=== PATIENT | male | born 1970 | race Caucasian/White ===

== ENCOUNTER → 2016-09-24 | Outpatient (CLI) | payer OTHER | END | disposition home or self-care (01) | LOC: GMAM 10:17 | PROVIDERS: ATTEND Family Medicine | DX: R53.83 Other fatigue (principal); E29.1 Testicular hypofunction; M10.9 Gout, unspecified; I10 Essential (primary) hypertension ==

== ENCOUNTER → 2016-09-24 | Outpatient (CLI) | payer OTHER | END | disposition home or self-care (01) | LOC: GMAM 12:27 | PROVIDERS: ATTEND Family Medicine | DX: I10 Essential (primary) hypertension (principal); M10.9 Gout, unspecified; R53.83 Other fatigue; E29.1 Testicular hypofunction ==

== ENCOUNTER → 2017-11-14 | Outpatient (CLI) | payer OTHER | LOC: GMAJS 14:19 | PROVIDERS: ATTEND Physician Assistant | DX: M79.89 Other specified soft tissue disorders (principal); I10 Essential (primary) hypertension ==

== ENCOUNTER → 2017-12-23 | Outpatient (CLI) | payer OTHER | LOC: GMA 11:54 | PROVIDERS: ATTEND Family Medicine | DX: E29.1 Testicular hypofunction (principal) ==

== ENCOUNTER → 2018-03-13 | Outpatient (CLI) | payer OTHER | LOC: GMAM 15:03 | PROVIDERS: ATTEND Family Medicine | DX: I10 Essential (primary) hypertension (principal); E29.1 Testicular hypofunction; M10.9 Gout, unspecified ==

== ENCOUNTER → 2018-10-13 | Outpatient (CLI) | payer OTHER | LOC: GMAM 13:55 | PROVIDERS: ATTEND Family Medicine | DX: M10.9 Gout, unspecified (principal); E29.1 Testicular hypofunction ==

== ENCOUNTER → 2019-06-08 | Outpatient (CLI) | payer OTHER | LOC: GMAM 10:56 | PROVIDERS: ATTEND Family Medicine | DX: Z00.00 Encounter for general adult medical examination without abnormal findings (principal); R53.83 Other fatigue; Z12.5 Encounter for screening for malignant neoplasm of prostate ==